=== PATIENT | male | born 1985 | race Caucasian/White ===

== ENCOUNTER 2017-03-10 02:02 | Emergency (ER) | payer SELFPAY ==
[~2017-03-10] VITALS: Ht 182.9 cm; Wt 77.1 kg
--- NOTE | 2017-03-10 02:45 | NUR ---
PT RECEIVED FROM HOME BY LUIS C/O "I SHUT A CARGO DOOR ON MY RIGTH ARM AND I FEEL LIKE I TORE MY MUSCLE" STATING 08/28 PAIN NONRADIATING. NO SOB NOTED AT THIS TIME. A/OX4 VSS NAD. GUARDING RIGHT ARM AND NOT ABLE TO FULLY EXTEND TO A STRAIGHT POSITION. WILL CONTINUE TO MONITOR FOR ANY CHANGES
[2017-03-10] MEDS ORDERED: HYDROCODONE/APAP 10/325MG 1 EA TABLET PO ONE (03:00)
[2017-03-10] MEDS ORDERED: HYDROCODONE/APAP 10/325MG 1 EA TABLET ONE (03:16)
--- NOTE | 2017-03-10 03:22 | NUR ---
RADIOLOGY MADE AWARE OF CT SCAN
--- NOTE | 2017-03-10 03:28 | NUR ---
PT OFF TO CT SCAN
--- NOTE | 2017-03-10 03:40 | NUR ---
PT BACK FROM CT SCAN
--- NOTE | 2017-03-10 04:23 | NUR ---
ER MD AGUILAR IN ROOM FOR EXPLANATION OF CT RESULTS AND ARM SLING INSTRUCTIONS
--- NOTE | 2017-03-10 04:24 | NUR ---
COSTA QUIÑONES AT BEDSIDE FOR IMPLEMENTATION OF ARM SLING
--- NOTE | 2017-03-10 04:29 | NUR ---
AWAITING CT CD FOR PT TO TAKE HOME FOR ORTHO F/U
[2017-03-10 04:33] VITALS: BP 136/75
== END 2017-03-10 04:33 | disposition home or self-care (01) ==
LOC: ER 02:11
DX: S46.211A Strain of muscle, fascia and tendon of other parts of biceps, right arm, initial encounter (principal); V03.99XA Pedestrian with other conveyance injured in collision with car, pick-up truck or van, unspecified whether traffic or nontraffic accident, initial encounter; Y93.89 Activity, other specified; Y92.413 State road as the place of occurrence of the external cause; Y99.8 Other external cause status
CPT/HCPCS: 73200; 99284; A4606; Z7610